=== PATIENT | female | born 1985 | race Caucasian/White ===

== ENCOUNTER 2020-04-02 15:26 | Observation (INO) | payer BC ==
[~2020-04-02] VITALS: Ht 175.3 cm; Wt 79.4 kg
[2020-04-02] MEDS ORDERED: LACTATED RINGERS 1000ML 1,000 ML IV ONE (16:04)
[2020-04-02 16:31] LABS: APPEARANCE,URINE Cloudy (CLEAR); BILIRUBIN,URINE Small (NEGATIVE); COLOR,URINE Dark Yellow (YELLOW); GLUCOSE, URINE (UA) Negative (NEGATIVE); KETONES,URINE 15 mg/dL (NEGATIVE); LEUKOCYTE ESTERASE ,URINE Trace (NEGATIVE); NITRATE,URINE Negative (NEGATIVE); OCCULT BLOOD,URINE Small (NEGATIVE); PH,URINE 5.5 (5.0-8.0); PROTEIN,URINE POS 2+ mg/dL (NEGATIVE)
[2020-04-02 16:36] VITALS: BP 101/53
[2020-04-02] MEDS: TERBUTALINE SULFATE VIAL 1MG/ML SQ ONE ×2 (16:48→17:00)
[2020-04-02 16:53] LABS: BACTERIA,URINE Moderate /HPF (None Seen); MUCUS,URINE Few LPF (None Seen); SQUAMOUS EPITHELIAL CELL,UR Moderate /HPF (0-2)
[2020-04-02] MEDS ORDERED: AMPICILLIN 2GM+NS 100ML 100 ML IV SCH (17:45)
[2020-04-02] MEDS ORDERED: CALCIUM GLUCONATE 1 GM/10 ML VIAL IV PRN (17:45)
[2020-04-02] MEDS ORDERED: PHARMACY COMMUNICATION MISC SCH (17:45)
[2020-04-02] MEDS ORDERED: MAGNESIUM 4GM PREMIX 100ML 100 ML IV SCH (17:45)
[2020-04-02] MEDS: LACTATED RINGERS 1000ML 1,000 ML IV PRN (18:13)
[2020-04-02] MEDS: MAGNESIUM SULFATE 1,000 ML IV PRN (18:22)
[2020-04-02] MEDS: CELESTONE SOLUSPAN 6 MG/ML 5ML VIAL IM SCH (18:23)
[2020-04-02 19:12] LABS: HEMATOCRIT 29.5 % (36-48); MEAN CORPUSCULAR HEMOGLOBIN 29.2 pg (27.0-33.0); MEAN CORPUSCULAR HGB CONC 33.9 g/dL (32.0-36.0); RED BLOOD CELL COUNT(AUTO) 3.43 MIL/uL (4.00-5.50); RED CELL DISTRIBUTION WIDTH 13.5 % (11.0-15.5); WHITE BLOOD COUNT (AUTO) 13.8 K/uL (4.8-10.8)
[2020-04-02 20:29] VITALS: BP 100/56
[2020-04-02] MEDS: AMPICILLIN 1GM+NS 50ML 50 ML IV SCH (21:49)
[2020-04-02 22:32] LABS: AMPHET/METH SCREEN,URINE NEGATIVE (NEGATIVE); BARBITURATE SCREEN, URINE NEGATIVE (NEGATIVE); BENZODIAZEPINES SCREEN,URINE NEGATIVE (NEGATIVE); CANNABINOID SCREEN,URINE NEGATIVE (NEGATIVE); COCAINE SCREEN,URINE NEGATIVE (NEGATIVE); OPIATE SCREEN,URINE NEGATIVE (NEGATIVE); PHENCYCLIDINE SCREEN,URINE NEGATIVE (NEGATIVE)
[2020-04-03] MEDS: AMPICILLIN 1GM+NS 50ML 50 ML IV SCH ×6 (01:51→22:25)
[2020-04-03] MEDS: MAGNESIUM SULFATE 1,000 ML IV PRN ×2 (09:49→10:00)
[2020-04-03] MEDS: LACTATED RINGERS 1000ML 1,000 ML IV PRN (14:00)
[2020-04-03] MEDS: CELESTONE SOLUSPAN 6 MG/ML 5ML VIAL IM SCH (17:21)
[2020-04-04] MEDS: AMPICILLIN 1GM+NS 50ML 50 ML IV SCH ×2 (02:53→06:30)
[2020-04-04 07:14] LABS: HEPATITIS Bs ANTIGEN SCREEN P Negative (Negative)
== END 2020-04-04 14:05 | disposition home or self-care (01) ==
LOC: EDH 15:26 → LDH 15:27
PROVIDERS: ADMIT Obstetrics & Gynecology; ATTEND Obstetrics & Gynecology
DX: O60.02 Preterm labor without delivery, second trimester (principal); O09.523 Supervision of elderly multigravida, third trimester; Z3A.25 25 weeks gestation of pregnancy
CPT/HCPCS: 36415 ×2; 59025; 76805; 80305; 81001; 82948; 83735; 85027; 86592; 86850; 86900; 86901; 87088; 87340; 96361 ×2; 96365; 96366 ×5; 96368; 96372 ×2; 96376; 99283; A4314; A4600 ×2; G0378 ×46; J0290 ×9; J0702; J3105; J3475 ×3; J7120 ×3; 96360